=== PATIENT | male | born 1975 | race Caucasian/White ===

== ENCOUNTER 2020-04-28 15:37 | Day surgery (SDC) | payer MEDICAID, SELFPAY ==
[2020-04-28] VITALS (15 sets, daily range): BP systolic 117–148; BP diastolic 66–97; PULSE 98–148; RESP 13–24; TEMP 36.4–36.8; O2SAT 94–99; BMI 28.1
--- NOTE | 2020-04-28 16:06 | W.ED.MALEGU ---
Documented by User: ROMEO Servin 05/01/20 07:09 HPI - Male Genitourinary General: Chief complaint: Urogenital-Male Stated complaint: Kidney Stone Complications Time Seen by Provider: 04/28/20 15:38 Source: patient Mode of arrival: ambulatory Limitations: no limitations History of Present Illness: HPI Narrative: Patient is a 45-year-old male who presents to ED today stating he has a kidney stone lodged in his distal urethra. Patient tells me he has been able to visualize the stone and has even touched the stone with a pair of tweezers trying to extract it. Patient tells me he does have a previous history of kidney stones. Patient is extremely uncomfortable during initial exam. He states he is still able to urinate but states it splatters and dribbles out. Complaint: other (penile pain) Onset (ago): hour(s) Duration: constant Location: penis Radiation: penis Severity: severe Severity scale (1-10): 10 Quality: sharp Relieving factors: none Exacerbating factors: urination Associated symptoms: Reports no associated symptoms, dysuria, hematuria and nausea; Deny vomiting Review of Systems Const: Denies: fever(s) or chills GI: Reports: nausea; Denies: abdominal pain, vomiting, diarrhea or change in stool character : Reports: difficulty urinating, dysuria, hematuria and other (penile pain); Denies: flank pain Musc: Denies: back pain [facility] ED PFSH: Medical History (Updated 04/29/20 @ 00:00 by ) Acute urinary retention History of noncompliance with medical treatment Hypertension Urolithiasis Surgical History (Updated 04/28/20 @ 18:07 by Sav Mir MD) History of total adrenalectomy Diagnosis and details of surgery unknown. Right sided. Done in [place]. Family History (Updated 04/28/20 @ 18:07 by Sav Mir MD) Other Alcoholism Social History (Updated 04/28/20 @ 18:09 by Sav Mir MD) Smoking and tobacco status: current every day smoker Marital status: Physical Exam Const: COMMON NORMALS: average body habitus, patient oriented x3, no limitations, alert and well nourished GENERAL APPEARANCE: cooperative and in distress (very anxious, diaphoretic) ORIENTATION/CONSCIOUSNESS: Yes awake, Yes oriented to person, Yes oriented to place and Yes oriented to time OTHER: pacing around the room HENMT: COMMON NORMALS: normocephalic and atraumatic HEAD & SCALP: normocephalic and atraumatic Resp: COMMON NORMALS: normal respiratory effort and clear to auscultation bilaterally AUSCULTATION: clear to auscultation bilaterally Cardio: COMMON NORMALS: regular rhythm RATE: tachycardic RHYTHM: regular rhythm : COMMON NORMALS: Yes no CVA tenderness BLADDER/KIDNEY EXAM: Yes no CVA tenderness PENIS: circumcised and other (hard fb/possible stone felt at distal penis) MEATUS: Blood at meatus present Back/Pelvis: COMMON NORMALS: no CVA tenderness Neuro: COMMON NORMALS: patient oriented x3 SENSORIUM/ORIENTATION: Yes alert, Yes oriented to person, Yes oriented to place and Yes oriented to time Course Consultations: Consultation #1: Dr. Mir-will come evaluate patient in ED and attempt to remove Vital Signs: Vital signs: Vital Signs Temperature 98 F 04/28/20 20:26 Pulse Rate 98 04/28/20 20:26 Respiratory Rate 14 04/28/20 20:26 Blood Pressure 148/88 04/28/20 20:26 Pulse Oximetry 95 04/28/20 20:26 MDM - Male MDM Narrative: Medical decision making narrative: Care transferred to Dr. Lyons at shift change. Imaging Data: XR abdomen : My impression: large fb/stone noted to distal urethra measuring approximately 17mm x 7mm Discharge Plan Discharge Patient Disposition: Admitted As Inpatient Clinical Impression: Urethra, calculus Condition: Stable Discharge Diet: Usual diet Discharge Activity: Resume usual activity Coding Level of Care Code ED Recreation Therapy Teacher for Chg Fwd Exam Detailed Documented by User: Skip Lyons MD 04/28/20 18:29 HPI - Male Genitourinary General: Chief complaint: Urogenital-Male Stated complaint: Kidney Stone Complications Time Seen by Provider: 04/28/20 15:38 PFSH ED PFSH: Medical History (Updated 04/29/20 @ 00:00 by ) Acute urinary retention History of noncompliance with medical treatment Hypertension Urolithiasis Surgical History (Updated 04/28/20 @ 18:07 by Sav Mir MD) History of total adrenalectomy Diagnosis and details of surgery unknown. Right sided. Done in [place]. Family History (Updated 04/28/20 @ 18:07 by Sav Mir MD) Other Alcoholism Social History (Updated 04/28/20 @ 18:09 by Sav Mir MD) Smoking and tobacco status: current every day smoker Marital status: Course Vital Signs: Vital signs: Vital Signs Temperature 98 F 04/28/20 20:26 Pulse Rate 98 04/28/20 20:26 Respiratory Rate 14 04/28/20 20:26 Blood Pressure 148/88 04/28/20 20:26 Pulse Oximetry 95 04/28/20 20:26 MDM - Male MDM Narrative: Medical decision making narrative: This is Dr. Frederick I took over care at shift change. Dr. Mir unable to remove stone in the ER. He will take the patient to the OR and removed with cystoscope and laser. Discharge Plan Discharge Patient Disposition: Admitted As Inpatient Clinical Impression: Urethra, calculus Condition: Stable Discharge Diet: Usual diet Discharge Activity: Resume usual activity Coding Level of Care Code ED Recreation Therapy Teacher for [facility]na Fwd Exam Detailed
--- NOTE | 2020-04-28 16:13 | XRR_ITS ---
PROCEDURE INFORMATION: Exam: XR Pelvis Exam date and time: 04/28/2020 4:52 PM Age: 45 years old Clinical indication: Other: Poss stone in urethra TECHNIQUE: Imaging protocol: XR pelvis. Views: 1 or 2 view. COMPARISON: CR Hip 2-3v LEFT wwo Pelv* [id number] 12/08/2015 2:49 PM FINDINGS: Bones/joints: Unremarkable. No acute fracture. Soft tissues: Unremarkable. Vasculature: Small rounded calcifications along the pelvic sidewall areas most likely represent vascular phleboliths. Other findings: On the lateral view large ovoid calcified structure of the anterior penis just proximal to the glans area measuring 12 mm AP x 10 mm craniocaudad height by 8 mm transverse. XR/XR pelvis 1-2V* [id number] IMPRESSION: Large calcified stone in the distal aspect of the penis.
[2020-04-28] MEDS: ondansetron 2 mg/ML SDV 2 mL 4 MG IVP (16:16)
[2020-04-28] MEDS: morphine 4 mg/mL SDV 1 mL IVP (16:17)
--- NOTE | 2020-04-28 16:19 | PC.NURSE ---
Dr Lyons and ROMEO Servin at bedside to examine pt claims of kidney stone stuck in his urethra.
[2020-04-28] MEDS: HYDROmorphone 1 mg/mL INJ 1 mL IVP ×3 (16:46→18:12)
[2020-04-28] MEDS: lidocaine 2% Urojet 20 mL TOPICAL ×2 (17:30→19:10)
--- NOTE | 2020-04-28 17:48 | PM.OPSURHP ---
Providers/Chief Complaint Admitting Physician: Adeola Chief Complaint: Kidney Stone Complications History of Present Illness Ousmane Malloy is a 45 year old male Known to me for history of recurrent urolithiasis. He was last seen in 2017 when he was treated for multiple stones in the left ureter. He failed to keep his follow-up appointment. Has had a history of longstanding poor compliance. He states that he [facility] after the last procedure and that is why he missed his appointment. Since that time he has had multiple stone passages. He was told by surgeons that removed his right adrenal gland that he had many many stones in his kidneys. I instructed him that he needed to be followed up and he agreed to do so. Presented to the emergency department today with complaints of a stone lodged in the distal urethra with severe obstructive voiding symptoms and pain. He could feel the stone and actually see the tip of it but could not manipulate it out. He had tried several attempts with tweezers at home unsuccessfully. KUB confirmed a stone in the distal urethra. Denied fever or chills. Was complaining of severe pain and dribbling of urine. He did report some renal colicky symptoms 2 days prior. Procedure: Manipulation of urethral stone. He was prepped and draped in the emergency department. 2% lidocaine jelly was instilled into the urethra. Hemostats were used to try to free up the stone but unsuccessfully. There was partial fragmentation of the stone with a hemostat but it was not enough to dislodge the stone. He tolerated procedure well but ultimately it was abandoned due to failure to be able to move the stone. Recommendations: To the operating room for cystolitholapaxy. No recent Covid test or reported Covid case. Informed consent obtained. Review of Systems Const: Denies: fever(s), chills or malaise Eyes: Reports: change in vision; Denies: blurry vision ENMT: Denies: throat pain or odynophagia Card: Denies: chest pain or palpitations Resp: Denies: dyspnea, wheezing or hemoptysis GI: Denies: abdominal pain, nausea or vomiting : Reports: difficulty urinating, dysuria, urinary hesitancy, oliguria and hematuria; Denies: flank pain Musc: Denies: neck pain or back pain Skin/Breast: Denies: rash, pruritus or erythema Neuro: Denies: headache(s), numbness in extremities or confusion Psych: Reports: anxiety (Pain related); Denies: memory loss Endo: Denies: flushing or hot flashes Carlos/Lymph: Denies: easy bruising, easy bleeding or enlarged lymph nodes All/Imm: Denies: urticaria or acute wheezing Medications/Allergies Home Medications Medication Instructions Recorded Confirmed Last Taken Type No Known Home Medications 04/28/20 04/28/20 Unknown History Allergies Allergy/AdvReac Type Severity Reaction Status Date / Time No Known Allergies Allergy Verified 04/28/20 15:46 PFSH PFSH: Medical History (Updated 04/28/20 @ 18:04 by Sav Mir MD) Acute urinary retention History of noncompliance with medical treatment Hypertension Urolithiasis Surgical History (Updated 04/28/20 @ 18:07 by Sav Mir MD) History of total adrenalectomy Diagnosis and details of surgery unknown. Right sided. Done in [place]. Family History (Updated 04/28/20 @ 18:07 by Sav Mir MD) Other Alcoholism Social History (Updated 04/28/20 @ 18:09 by Sav Mir MD) Smoking and tobacco status: current every day smoker Marital status: Vital Signs Vitals Signs: Last Vital Signs Temp 98.1 F 04/28/20 15:47 Pulse 108 H 04/28/20 16:30 Resp 17 04/28/20 16:46 BP 137/97 04/28/20 16:30 Pulse Ox 96 04/28/20 16:30 Weight: Weight last 48 hrs Weight 180 lb Physical Exam Const: COMMON NORMALS: no acute distress, alert and well nourished GENERAL APPEARANCE: well kempt and well developed ORIENTATION/CONSCIOUSNESS: not confused HENMT: HEAD & SCALP: normocephalic and atraumatic Eye: COMMON NORMALS: conjunctivae normal and no scleral icterus Neck/C-Spine: COMMON NORMALS: full ROM GENERAL: Yes normal visual inspection Lymph: LYMPHATIC: no lymphadenopathy noted and no lymphedema noted Chest: COMMONS NORMALS: normal inspection of the chest Resp: COMMON NORMALS: normal respiratory effort EFFORT & INSPECTION: No labored and No Actively coughing Cardio: COMMON NORMALS: regular rate and regular rhythm RATE: tachycardic GI: COMMON NORMALS: Soft to palpation and non-tender INSPECTION: Yes normal to inspection PALPATION: Yes Soft to palpation and No Tenderness to palpation present (GI) : COMMON NORMALS: Yes no CVA tenderness MALE GROIN/PERINEUM EXAM: No ecchymosis and No hernia PENIS: penis abnormal, circumcised and other (Palpable visible stone just inside the meatus) MEATUS: meatus abnormal, no meatla discharge and No Blood at meatus present SCROTUM: Yes testes descended bilaterally, No edematous and No scrotal swelling TESTES: No absent testicle, No testicular tenderness, No testicular mass, Yes epididymides normal and No epididymal tenderness Extremity: COMMON NORMALS: no clubbing, cyanosis or edema Neuro: COMMON NORMALS: no focal motor deficits SENSORIUM/ORIENTATION: Yes alert Psych: COMMON NORMALS: mental status grossly normal APPEARANCE: Yes grossly normal and Yes well kempt ATTITUDE: Yes calm and Yes engaged Skin: COMMON NORMALS: no rashes or lesions noted and no jaundice A&P Assessment and plan (1) Urethra, calculus: Status: Acute (2) Acute urinary retention: Secondary to large obstructing distal urethral stone. Status: Acute (3) Urolithiasis: Prolific stone former with multiple spontaneous passages. Multiple surgeries required for removal historically. Terribly noncompliant. Status: Acute Qualifiers: Urinary calculus location: kidney Qualified Code(s): N20.0 - Calculus of kidney (4) History of noncompliance with medical treatment: Status: Acute Coding Level of Care Code Acute Slot Service Specialist for [facility] Fwd Exam Comprehensive Diagnoses Urethra, calculus N21.1 Acute urinary retention R33.8 Urolithiasis N20.0 Urinary calculus location: kidney History of noncompliance with medical treatment Z91.19
--- NOTE | 2020-04-28 17:53 | ED_ITS ---
HPI - Male Genitourinary General: Chief complaint: Urogenital-Male Stated complaint: Kidney Stone Complications Time Seen by Provider: 04/28/20 15:38 Source: patient Mode of arrival: ambulatory Limitations: no limitations History of Present Illness: HPI Narrative: Took over from a [place]. The patient has a stone lodged in his distal urethra. Dr. Mir attempted to remove the stone unsuccessfully in the ER. It is too large to remove. He would like to take him to the OR and use a laser on it. Location: penis Severity: severe Quality: sharp Relieving factors: none Exacerbating factors: urination Review of Systems General: Reports: 10 or more systems reviewed and unremarkable except in HPI and below Const: Denies: fatigue Eyes: Denies: change in vision, blurry vision or eye redness ENMT: Denies: throat pain, swelling of lips/tongue, ear or mastoid pain or nasal congestion Card: Denies: chest pain, palpitations, irregular heart rhythm, edema, dyspnea on exertion or orthopnea Resp: Denies: dyspnea, productive cough or non-productive cough GI: Denies: abdominal pain, diarrhea or GI cramping : Reports: other (penile stone.); Denies: flank pain, urinary frequency or urinary urgency Musc: Denies: neck pain, back pain, extremity pain, joint pain, joint redness, limited range of motion or muscle weakness Skin/Breast: Denies: rash, pruritus, erythema, skin pain or skin tenderness Neuro: Denies: headache(s), numbness in extremities, weakness in extremities, sensory changes, difficulty walking, dizziness, confusion or Slurred speech present Psych: Denies: anxiety or depression Endo: Denies: polyuria All/Imm: Denies: urticaria, throat swelling or tongue swelling Physical Exam Const: COMMON NORMALS: no acute distress, average body habitus, patient oriented x3, no limitations, healthy appearing, alert and well nourished GENERAL APPEARANCE: cooperative, comfortable, well kempt and well developed ORIENTATION/CONSCIOUSNESS: Yes awake, Yes oriented to person, Yes oriented to place and Yes oriented to time HENMT: COMMON NORMALS: normocephalic, external ears normal and Normal external nose present HEAD & SCALP: normal to inspection and normocephalic NOSE: Normal external nose present EXTERNAL EAR: Yes external ears normal MOUTH: Normal oral and palatal mucosa present THROAT: posterior oropharynx normal Eye: COMMON NORMALS: Equal, round and reactive pupils present and EOMs intact bilaterally GENERAL EYE: appearance normal, both eyes and all related structures PUPIL: Yes Equal, round and reactive pupils present Neck/C-Spine: COMMON NORMALS: full ROM, no lymphadenopathy, no meningeal signs and no JVD GENERAL: Yes normal visual inspection Lymph: LYMPHATIC: no lymphadenopathy noted Chest: COMMONS NORMALS: normal inspection of the chest and normal palpation of entire chest wall Resp: COMMON NORMALS: normal respiratory effort, No retractions, No use of accessory muscles, clear to auscultation bilaterally and percussion normal EFFORT & INSPECTION: Yes able to speak in complete sentences AUSCULTATION: clear to auscultation bilaterally PERCUSSION: percussion normal Cardio: COMMON NORMALS: no JVD, regular rate, regular rhythm, S1 normal heart sound present, S2 normal heart sound present and Peripheral pulses 2+ throughout RATE: regular rate RHYTHM: regular rhythm HEART SOUNDS: S1 normal heart sound present and S2 normal heart sound present PERIPHERAL PULSES: Peripheral pulses 2+ throughout GI: COMMON NORMALS: Normal to inspection, nondistended, normoactive bowel sounds present, Soft to palpation, non-tender and no masses INSPECTION: Yes normal to inspection PALPATION: Yes Soft to palpation : COMMON NORMALS: Yes no CVA tenderness BLADDER/KIDNEY EXAM: Yes no CVA tenderness OTHER: mass felt in distal penis near glans likely lodged uretheral stone. Able to see from uretheral opening with squeezing it that way. Back/Pelvis: COMMON NORMALS: no CVA tenderness, thoracic and lumbar spine normal to inspection, no thoracic nor lumbar tenderness and thoraco-lumbar ROM normal Extremity: COMMON NORMALS: normal to inspection, full ROM, capillary refill normal, no joint enlargement and no pedal edema GENERAL: Yes normal exam except as noted Neuro: COMMON NORMALS: patient oriented x3, CN's II-XII intact bilaterally, moves all extremities, no focal motor deficits, no sensory deficits noted and gait normal SENSORIUM/ORIENTATION: Yes alert, Yes oriented to person, Yes oriented to place and Yes oriented to time MENINGEAL SIGNS: Yes no meningeal signs Psych: COMMON NORMALS: mental status grossly normal, Normal thought process present, cooperative, normal affect and speech normal APPEARANCE: Yes well k empt ATTITUDE: Yes calm SPEECH: Yes normal speech THOUGHT PROCESS: Norm al thought process present Skin: COMMON NORMALS: no rashes or lesions noted GENERAL SKIN EXAM: no rashes or lesions noted Course Vital Signs: Vital signs: Vital Signs Temperature 98.1 F 04/28/20 15:47 Pulse Rate 127 H 04/28/20 17:51 Respiratory Rate 18 04/28/20 17:51 Blood Pressure 135/89 04/28/20 17:51 Pulse Oximetry 95 04/28/20 17:51 MDM - Male MDM Narrative: Medical decision making narrative: Stone too large to pass and Dr. Mir was unable to remove it in the ER. He will take him to the OR and use the laser to remove the stone. Discharge Plan Discharge Patient Disposition: Admitted As Inpatient Clinical Impression: Urethra, calculus Condition: Stable Coding Level of Care Code ED Production Support Consultant for [facility] Blank
--- NOTE | 2020-04-28 18:26 | PM.OP ---
Operative Report Date of procedure: April 28, 2020 Pre-op Diagnosis: 1. Distal urethral calculus 2. Urinary obstruction Post-op diagnosis: same Procedure Done: 1. Cystoscopy, laser lithotripsy urethral stone 2. Cystolitholapaxy less than 2.5 cm 3. Left ureteroscopy, no stent Specimens removed/disposition: Urethral and bladder stone fragments Pathology: Stone fragments Surgeon: Adeola Anesthesia: General Estimated blood loss: Less than 10 cc Urine output: Not measured Complications: None Findings: Large stone wedged into the distal urethra. Required laser fragmentation. Fragments removed. Distal urethra quite edematous and inflamed from stone. Additional bladder stones identified on cystoscopy. Treated with laser lithotripsy as well. <2.5 cm in size Markedly edematous left intramural tunnel. Left ureteroscopy showed no evidence of residual stones. Condition: stable Disposition: PACU (Anticipate discharge to home postoperatively) Brief History: Ousmane is a 45-year-old white male well-known to me with a history of recurrent urolithiasis and terrible compliance with follow-up. He was last seen in 2017 and was treated for multiple stones with ESWL. A stent was left indwelling with the string and he unfortunately pulled out immediately postoperatively before leaving the hospital but denied it later. He did not keep his follow-up appointment. He stated that he was in senior living. Since then he has had multiple stone episodes but no obvious stone treatment that I could elicit. He has had his right adrenal gland removed down in [facility]. Was unaware of the pathology but stated that they did not think it was cancer. Presented to the emergency department today with a stone lodged in his distal urethra. He had tried to get the stone out with tweezers at home but was unsuccessful. KUB confirmed the stone to be quite large measuring 1.7 by at least 7 mm. I made multiple attempts to remove the stone in the ED with use of hemostats, 2% lidocaine jelly, grasping forceps all to no avail. The stone was partially fragmented with that technique but still could not be manipulated out and ultimately it was decided to proceed to the operating room for treatment of the stone. He had no current Covid test and had not been diagnosed with Covid in the last 90 days and therefore Covid precautions were initiated. Procedure: After emergent evaluation examination and obtaining of informed consent he was taken to the operating suite on 04/28/2020 where general anesthesia was administered without difficulty. Prepped and draped in the usual sterile fashion in dorsal lithotomy position paying careful attention to avoiding pressure points. Appropriate timeout was performed, SCDs confirmed to be functioning, preoperative antibiotics administered, beta-nicol protocol confirmed. 17 Stateless cystoscope was advanced into the very distal aspect of the urethral meatus. Stone was confirmed. A 365 ?m holmium laser fiber was then used to fragment the stone under direct vision. Stone particles were removed with flushing and grasping forceps. After stone was removed the scope was passed into the bladder and the bladder inspected. An additional stone measuring approximately 1 cm was identified in the bladder and it was fragmented as well in the same fashion and the fragments were flushed from the bladder with an [employer] evacuator. The left intramural tunnel was very edematous and inflamed consistent with recently having passed the stone. It was decided to pass the ureteroscope to confirm no residual stones in the ureter. A 7.5 Stateless offset semirigid ureteroscope was then advanced into the bladder and easily up the left ureter up to the UPJ where no additional stones were seen. The ureter was in good shape with no evidence of significant intramural edema and for that reason it was decided to not leave a stent. (His renal colic had resolved before evaluation in the emergency department) The urethra was carefully inspected and was found to be quite edematous at the area of lodging of the stone and for that reason it was decided to leave a temporary catheter in place. 16 Stateless Tejada catheter placed without difficulty and secured to a leg bag. Tolerated the procedure well without complications and was awakened in the operating room and returned to the PACU in stable condition with plans for discharge from outpatient surgery [facility]. PLANS: 1. Patient was instructed on how to remove the Tejada catheter. He can do so tomorrow or the next day. 2. We will need to see him back in the office in about a month with a KUB first. I expect that he still has many stones in his kidneys. I have encouraged him to try to take seriously the recommendations for follow-up and specifically regarding his compliance with medical follow-up. He stated that he would do better. Associated Problem List Diagnoses (1) Urethra, calculus: (2) Acute urinary retention: (3) Bladder stone:
[2020-04-28] MEDS: sodium chloride 0.9% 1,000 ML 30 ML IV (18:37)
[2020-04-28] MEDS: levofloxacin-dextrose 5 % 500 MG/100 ML PREMIX 100 MG IV (18:53)
[2020-05-03 15:39] LABS: Stone Source BLADDER
== END 2020-04-28 20:26 | disposition home or self-care (01) ==
LOC: ER 16:55 → OR 17:52
PROVIDERS: Emergency Provider Family Medicine; Visit Provider Urology
PROC: 0TCB8ZZ Extirpation of Matter from Bladder, Via Natural or Artificial Opening Endoscopic (ICD-10-PCS; CPT 52317; principal; 2020-04-28 18:00)
PROC: 0TJ98ZZ Inspection of Ureter, Via Natural or Artificial Opening Endoscopic (ICD-10-PCS; CPT 52351; 2020-04-28 18:00)
PROC: (CPT 52317; 2020-04-28 18:00)
DX: N21.1 Calculus in urethra (principal); R33.8 Other retention of urine; Z91.19 Patient's noncompliance with other medical treatment and regimen; N21.0 Calculus in bladder; I10 Essential (primary) hypertension; F17.210 Nicotine dependence, cigarettes, uncomplicated; N20.0 Calculus of kidney
CPT/HCPCS: 52317; 52353; 12345; 72170; 82365; 88300; 96365; 99282; J1100; J1170; J1956; J2270; J2405; J2704; J3010; J3490; J7030